=== PATIENT | female | born 1995 | race Caucasian/White ===

== ENCOUNTER 2016-11-26 10:33 | Emergency (ER) | payer MEDICAID ==
[~2016-11-26] VITALS: Ht 157.5 cm; Wt 71.2 kg
[~2016-11-26 10:33] MED LIST: ALBUAER3 IN; CIPR-173 PO; FER325T PO; METR500T PO
[2016-11-26 11:43] VITALS: BP 121/83
== END 2016-11-26 12:13 | disposition home or self-care (01) ==
LOC: ER 10:34
DX: L73.2 Hidradenitis suppurativa (principal); F17.210 Nicotine dependence, cigarettes, uncomplicated; Z88.0 Allergy status to penicillin